=== PATIENT | female | born 1970 | race Caucasian/White ===

== ENCOUNTER 2016-12-11 11:57 | Inpatient (IN) | payer SELFPAY ==
--- NOTE | ~2016-12-11 | DS ---
Discharge Summary [id number] [place]. [address] NAME: GERHARD HERNANDEZ : 66 STATUS : DIS IN PAT#: [id number] AGE: 46 ADM/REG DATE : 12/11/16 MR#: [id number] REPORT SERV DATE: 12/14/16 DICTATED BY: RONNIE SOLOMON DATE: 12/13/16 REPORT STATUS : Draft TRANSCRIBED BY: MODL DATE: 12/13/16 ADMISSION DATE: 12/11/2016 DISCHARGE DATE: 12/13/2016 DISCHARGE DIAGNOSES: 1. Sepsis. 2. Community-acquired pneumonia. 3. Acute exacerbation of chronic obstructive pulmonary disease. 4. Acute hypoxemic respiratory failure. 5. Hypertension. 6. Coronary artery disease with inferior myocardial infarction in June 2013, treated with bare metal stent. 7. Hyperlipidemia. 8. Daily tobacco use. 9. Daily alcohol use. 10.Poor medication compliance because of financial reasons. 11.Mild elevation of alkaline phosphatase and bilirubin. Outpatient followup needed. OPERATIONS AND PROCEDURES: None. PRESENT ILLNESS: This is a 46-year-old white female, who was triaged in the emergency room on 12/11/2016 at 1157 hours complaining of shortness of breath. Her admission vital signs were blood pressure 162/96, temperature 102.5, pulse 134, respirations of 24, O2 saturation 93. After evaluation in the emergency room, she was thought to have a right lower lobe pneumonia. She was referred to the Hospitalist Service. She was seen by the undersigned and admitted as described on admission history and physical examination. ADDITIONAL HISTORY: Per history and physical. PHYSICAL EXAMINATION: Per history and physical. ADMISSION LABORATORY: Per history and physical. HOSPITAL COURSE: She was admitted as described. She was placed on [address]. Cultures were obtained. She was started on Rocephin and Zithromax. She was given IV fluids, bronchodilators, electrolyte replacement protocol, nicotine replacement protocol, multivitamins including thiamine and parenteral medications as needed for pain and nausea control. Over the course of her hospitalization, there was dramatic improvement in her presenting symptoms. Her T-max was 102.5 on the 12/11/2016 at 1157 hours. She defervesced and remained afebrile from 1950 on the 12/11/2016 to the time of discharge. Her cough, sputum, dyspnea, and wheezing improved, and by discharge, she was almost asymptomatic on room air. Her white count was 22.8 on admission increased to 24.6 and was 15.6 on the 12/13/2016. Discharge Summary [id number] [place]. [address] NAME: GERHARD HERNANDEZ : 66 STATUS : DIS IN PAT#: [id number] AGE: 46 ADM/REG DATE : 12/11/16 MR#: [id number] REPORT SERV DATE: 12/14/16 DICTATED BY: RONNIE SOLOMON DATE: 12/13/16 REPORT STATUS : Draft TRANSCRIBED BY: MODL DATE: 12/13/16 Procalcitonin on the 12/11/2016 was 0.09 and was not repeated. Streptococcal urinary antigens were negative as was a Legionella urinary antigen. Blood cultures obtained prior to antimicrobial therapy were negative. A chest x-ray repeated on the 12/12/2016, PA and lateral, showed a right basilar infiltrate or atelectasis, possibly increased from 12/11/2016 with the better technique. When seen on 12/13/2016 at 12:06, she was symptomatically improved, eating, and ambulatory. She thought she could manage at home. Her exam is normal except for a few posterior rhonchi. Her laboratory studies were as noted. Medications were obtained through our Outpatient Pharmacy Department. She was revisited at 1612 hours with continued improvement. She was given her third dose of Rocephin and Zithromax. It was felt, she could be safely discharged to home with outpatient followup at [facility] on 12/20/2016 at 10:30 a.m. DISCHARGE MEDICATIONS: Aspirin 81 mg daily. A 30-day supply of Lipitor 40 mg was given. A 30-day supply of Coreg 6.25 mg twice daily was given. A supply of Ceftin 500 mg to take twice daily for the next seven days beginning on 12/14/2016 was given in addition to Zithromax 500 mg to take with supper on Saturday and Saturday. She was also given a Combivent Respimat to use four times daily. She left prior to receiving her pneumococcal and flu vaccination which will need to be administered at her clinic followup. Discharge time greater than 30 minutes. DD/MODL Ronnie Solomon M.D. / [id number] CC: Ronnie Solomon M.D. [facility]
--- NOTE | ~2016-12-11 | HP ---
History And Physical [address] [address] NAME: GERHARD HERNANDEZ : 66 STATUS : ADM IN [facility]#: [id number] AGE: 46 ADM/REG DATE : 12/11/16 MR#: [id number] REPORT SERV DATE: 12/12/16 DICTATED BY: RONNIE SOLOMON DATE: 12/11/16 REPORT STATUS : Draft TRANSCRIBED BY: MODL DATE: 12/11/16 DATE OF ADMISSION: 12/11/2016 CHIEF COMPLAINT: This is a 46-year-old white female who was triaged in the emergency room on 12/11/2016 at 1157 hours complaining of shortness of breath. Her admission vital signs were blood pressure 162/96, temp 102.5, temperature 39.17 centigrade, pulse 134, respirations 24, O2 saturation 93. After evaluation in the emergency room, she was thought to have a right lower lobe pneumonia. She was referred to the Hospitalist Service. She is now seen by the undersigned and admitted. HISTORY OF PRESENT ILLNESS: She has been sick for approximately one week with a cough productive of discolored sputum. She has had shortness of breath. She has not checked her temperature, but she is certain she has had fever. She has had chills and sweating. She has not had any headache, earache, nasal drainage, or sore throat. She has not had any nausea, vomiting, or diarrhea. She has had some abdominal pain. She has not had any dysuria. She has not had any itching or rash. She is ached all over, but has not had any focal joint pain except her back. She did not have a flu vaccination within the past year. She has not had pneumonia vaccinations in the past. She does not recall any ill contacts, particularly with those that she lives with. She does not think that she has had any aspiration episodes. She has not been camping or sleeping outside. She has not traveled. No bird roosting around where she lives. The only animal contact has been a horse. She has city water. She does have a previous history of pneumonia in September of 2015 when she was in this hospital with the diagnosis of sepsis due to community-acquired pneumonia. She does not have any history of DVT, PE, cancer, diabetes, thyroid disease, stroke, urinary tract infections, connective tissue disorder, immunosuppressive therapy. MEDICAL HISTORY: Her other medical history includes: 1. COPD/asthma. 2. Hypertension. 3. Hyperlipidemia. 4. Coronary artery disease with inferior myocardial infarction in June 2013, treated with bare metal stent. 5. Daily tobacco use. 6. Daily alcohol use. 7. Poor medication compliance because of financial reasons. PAST SURGICAL HISTORY: None. CURRENT MEDICATIONS: None. ALLERGIES: NONE. History And Physical [address] [address] NAME: GERHARD HERNANDEZ : 66 STATUS : ADM IN PAT#: [id number] AGE: 46 ADM/REG DATE : 12/11/16 MR#: [id number] REPORT SERV DATE: 12/12/16 DICTATED BY: RONNIE SOLOMON DATE: 12/11/16 REPORT STATUS : Draft TRANSCRIBED BY: ANNCY DATE: 12/11/16 SOCIAL HISTORY: . Lives with friend. Two children. One [id number] smoking, two to three beers per day. FAMILY HISTORY: Three sisters, one brother, brother with bypass surgery. Mother with cardiovascular disease. Father with some type of cancer. REVIEW OF SYSTEMS: Complete, done with the patient in the emergency room and negative except as noted above. PHYSICAL EXAMINATION: ADMISSION VITAL SIGNS: See above. Subsequent vital signs at 1459 hours; blood pressure 141/86, temp 102, pulse 120, respirations 18, O2 saturation 93% on 3 L. GENERAL: This is an acutely ill, stated age appearing white female, who is alert and coherent and appears toxic. SKIN: Red, warm, and moist over neck, face, arms, chest, and back. NODES: No palpable axillary, cervical, or inguinal. HEENT: Atraumatic with symmetric facies. Lids, sclerae, and conjunctivae negative. No xanthelasma, scleral icterus, or conjunctival petechiae or ecchymoses. Extraocular movements intact. Pupils equal, round, and reactive to light. Hearing intact. External ears negative. Ear canals and TMs normal. Nose negative. Anterior nares and septum clear. No nasal discharge. Lips, gums, mucosa, hard and soft palates, posterior pharynx, tongue, and gums negative. NECK: Supple. No visible JVD. No palpable mass, goiter, or tenderness. Trachea midline, nontender. LUNGS: Bronchial breath sounds, rales, wheezes, or rhonchi right base posteriorly. Increased respiratory effort. HEART: Regular tachycardia. No audible murmur, gallop, rub, or click. Pulses 2+ and symmetric; radial, carotid, femoral, dorsalis pedis, and posterior tibial. ABDOMEN: Obese. Generally tender to palpation without guarding, rebound, or rigidity. Cannot feel liver, spleen, kidneys, or aortic pulsation. UPPER AND LOWER EXTREMITIES: No active synovitis, clubbing, or edema. Range of motion without pain in upper and lower extremities. NEUROLOGIC: Mental status. She is alert and oriented. Cranial nerves 2 through 12 normal. Deep tendon reflexes symmetric 2+ brachioradialis and knee jerk. Sensory intact to touch and temperature. Motor, moves all extremities equally. PSYCHIATRIC: Appropriate mood and affect. DATA: Arterial blood gases on room air; pH 7.56, pCO2 of 24, pO2 of 58, procalcitonin 0.09. Sodium 136, potassium 4, chloride 102, CO2 of 22, BUN 9, creatinine 0.95, glucose 120, calcium 9. Albumin 3.7, globulin 3.2, total bilirubin 1.5, alkaline phosphatase 132, ALT 13, AST 15. Lactate is 2.3. White count is 22,800, hemoglobin 16.1, platelets 235,000. PTT is 26.3, PT is 13. Urinalysis; positive urobilinogen, negative dipstick otherwise and microscopic. Chest x-ray reviewed. Suspect right pulmonary infiltrate. History And Physical [address] [address] NAME: GERHARD HERNANDEZ : 66 STATUS : ADM IN [facility]#: [id number] AGE: 46 ADM/REG DATE : 12/11/16 MR#: [id number] REPORT SERV DATE: 12/12/16 DICTATED BY: RONNIE SOLOMON DATE: 12/11/16 REPORT STATUS : Draft TRANSCRIBED BY: MODL DATE: 12/11/16 EKG: Sinus tachycardia. ASSESSMENT: This is a 46-year-old white female with: 1. Sepsis. 2. Community-acquired pneumonia. 3. Acute exacerbation of chronic obstructive pulmonary disease. 4. Acute hypoxemic respiratory failure. 5. Hypertension. 6. Hyperlipidemia. 7. Coronary artery disease, post inferior myocardial infarction in 06/2013 with bare mental stent, treated. 8. Daily tobacco use. 9. Daily alcohol use. 10.Elevated bilirubin and alkaline phosphatase. PLAN: In the emergency room, cultures were obtained. We will begin Rocephin and Zithromax per community-acquired pneumonia standing orders. Check CRP. Check urinary antigens. Begin MultiVites. Parenteral medications as needed for pain and nausea control. Begin IV fluids. Begin full array of aerosols with DuoNebs, Brovana, and budesonide. Nicotine replacement therapy protocol. Electrolyte replacement protocol. Observe for any symptoms of alcohol withdrawal. We will reinstitute guideline directed therapy for her cardiovascular disease with aspirin, beta adrian, and statin. Add JOSE inhibitor later pending followup blood pressures and renal function. Further diagnostic and therapeutic considerations pending follow up. DD/MODL Ronnie Solomon M.D. / [id number] CC: Ronnie Solomon M.D.
[~2016-12-11 11:57] MED LIST: *DENIES; ALKA-SELTZER P1 EAC3 PO; ASAB PO; BRILINTA90 MG PO; BUM1 PO; COREG12 PO; COREG6 PO; DULERA 200 MCG/13 GM INH; DUONEB INH; FLOVENT44 INH; HALF81 PO; LEVAQUIN750 MG PO; LIBRIUM 10 MG C10 MG PO; NICODERM C14 MG/24 H TOP; P20 PO; PRAVACHOL40 MG PO; PRILO PO; PRIN2.5 PO; PRIN20 PO; SYMBICORT 160/41 INH INH
[2016-12-11 12:37] LABS: ALLENS TEST Pos; BE (BASE EXCESS) 0.9 MEQ/L (0 +/- 2.5); HCO3 (ACTUAL BICARBONATE) 21.1 MEQ/L (23-27); HEMOBLOGIN CONTENT 15.8 G/DL (12-16); INSTRUMENT SERIAL # 8087; METHEMOGLOBIN 0.2 % (0-3); O2 CONTENT 19.6 VOL% (18-24); OPERATOR ID 35091; PCO2 (CO2 TENSION) 24 MMHG (35-45); PO2 (O2 TENSION) 58 MMHG (79-93); SAMPLE Arterial; pH 7.56 (7.37-7.43)
[2016-12-11 12:39] LABS: BASOPHILS 0.2 %; BASOPHILS ABSOLUTE 0.04 10/3/uL (0.0-0.16); EOSINOPHILS 0.3 %; EOSINOPHILS ABSOLUTE 0.06 10/3/uL (0.0-0.53); IMMATURE GRANULOCYTES 0.6 %; IMMATURE GRANULOCYTES ABSOLUTE 0.13 10/3/uL (0.0-0.11); LYMPHOCYTES 16.7 %; LYMPHOCYTES ABSOLUTE 3.79 10/3/uL (0.67-4.30); MEAN PLATELET VOLUME 10.4 fL (9.2-13.0); MONOCYTES 4.9 %; MONOCYTES ABSOLUTE 1.11 10/3/uL (0.21-1.20); NEUTROPHILS 77.3 %; NEUTROPHILS ABSOLUTE 17.63 10/3/uL (2.02-8.40); PLATELET COUNT 235 10/3/uL (150-400); RBC DISTRIBUTION WIDTH 13.3 % (12.0-16.0); RED CELL COUNT 5.22 10/6/uL (4.0-5.6)
[2016-12-11 12:44] LABS: ER CBC TAT 0 Hrs 12 Mins; HEMATOCRIT 46.9 % (36.0-48.0); HEMOGLOBIN 16.1 g/dL (12.0-16.0); MANUAL DIFF NO %; MEAN CORPUS HGB CONC 34.3 g/dL (32.0-36.0); MEAN CORPUSCULAR HEMOGLOB 30.8 pg (26.0-34.0); MEAN CORPUSCULAR VOLUME 89.8 fL (80-100); WHITE BLOOD CELLS 22.8 10/3/uL (4.5-10.5)
[2016-12-11 12:46] LABS: PARTIAL THROMBO TIME 26.3 SEC (22.5-37.2)
[2016-12-11 12:53] LABS: ALBUMIN 3.7 G/DL (3.5-5.0); CHLORIDE, SERUM 102 MMOL/L (96-112); CREATININE 0.95 MG/DL (0.55-1.02); GFR AFRICAN AMERICAN 82 ML/MIN (>=60); GFR NON AFRICAN AMERICAN 71 ML/MIN (>=60); GLUCOSE, SERUM 120 MG/DL (60-99); SGOT(AST) 15 U/L (5-40); SGPT(ALT) 13 U/L (5-65); SODIUM, SERUM 136 MMOL/L (135-148); TOTAL PROTEIN 6.9 G/DL (6.0-8.5)
[2016-12-11 12:54] LABS: A/G RATIO 1.2 (0.7-1.9); ALKALINE PHOSPHATASE 132 U/L (45-117); BUN (BLOOD UREA NITROGEN) 9 MG/DL (6-23); CO2 (CARBON DIOXIDE) 22 MMOL/L (24-34); GLOBULIN 3.2 G/DL (2.5-4.1); TOTAL BILIRUBIN 1.5 MG/DL (0-1.2)
[2016-12-11 13:04] LABS: LACTATE 2.3 MMOL/L (0.3-2.4)
[2016-12-11 13:21] LABS: PROCALCITONIN 0.09 ng/mL (<0.5)
[2016-12-11 14:10] LABS: ASCORBIC ACID (UR NOT ORDER) NEG (NEG); BILIRUBIN, URINE NEGATIVE (NEG); ER URINALYSIS TAT 0 Hrs 09 Mins; KETONE, URINE NEGATIVE (NEG); LEUKOCYTE ESTERASE(NOT OR NEG (NEG); NITRITE (URINE) NEG (NEG); WBC (NOT ORDERED) (RFLEX) < 1 (0-5)
[2016-12-11] MEDS ORDERED: ALBUTEROL0.083 % INH (14:49)
[2016-12-11 18:14] LABS: TROPONIN I <0.02 NG/ML (<0.05)
[2016-12-12 06:14] LABS: HEMOGLOBIN 13.3 g/dL (12.0-16.0); MEAN CORPUS HGB CONC 32.9 g/dL (32.0-36.0); MEAN CORPUSCULAR HEMOGLOB 30.3 pg (26.0-34.0); MEAN PLATELET VOLUME 10.6 fL (9.2-13.0); PLATELET COUNT 221 10/3/uL (150-400); RBC DISTRIBUTION WIDTH 13.7 % (12.0-16.0); RED CELL COUNT 4.39 10/6/uL (4.0-5.6); WHITE BLOOD CELLS 24.6 10/3/uL (4.5-10.5)
[2016-12-12 06:15] LABS: HEMATOCRIT 40.4 % (36.0-48.0); MANUAL DIFF YES %
[2016-12-12 06:23] LABS: BUN (BLOOD UREA NITROGEN) 11 MG/DL (6-23); CALCIUM, SERUM 8.6 MG/DL (8.5-10.4); CHLORIDE, SERUM 106 MMOL/L (96-112); CO2 (CARBON DIOXIDE) 26 MMOL/L (24-34); CREATININE 0.85 MG/DL (0.55-1.02); GFR AFRICAN AMERICAN 94 ML/MIN (>=60); GFR NON AFRICAN AMERICAN 81 ML/MIN (>=60); GLUCOSE, SERUM 98 MG/DL (60-99); SODIUM, SERUM 140 MMOL/L (135-148)
[2016-12-12 06:42] LABS: BAND NEUTROPHILS 17 %; EOSINOPHILS 1 %; EOSINOPHILS ABSOLUTE (CALC) 0.25 10/3/uL (0.0-0.53); LYMPHOCYTES 15 %; LYMPHOCYTES ABSOLUTE (CALC) 3.69 10/3/uL (0.67-4.30); NEUTROPHILS ABSOLUTE (CALC) 20.66 10/3/uL (2.02-8.40); PLATELET ESTIMATE ADQ (ADEQUATE); SEGMENTED NEUTROPHIL (0) 67 %; TOTAL NUCLEATED CELLS 100
[2016-12-12 06:43] LABS: RBC MORPHOLOGY NORM (NORMAL)
[2016-12-13 05:45] LABS: HEMATOCRIT 39.7 % (36.0-48.0); MEAN CORPUS HGB CONC 32.7 g/dL (32.0-36.0); MEAN CORPUSCULAR HEMOGLOB 30.4 pg (26.0-34.0); MEAN CORPUSCULAR VOLUME 92.8 fL (80-100); MEAN PLATELET VOLUME 10.7 fL (9.2-13.0); PLATELET COUNT 225 10/3/uL (150-400); RBC DISTRIBUTION WIDTH 13.7 % (12.0-16.0); RED CELL COUNT 4.28 10/6/uL (4.0-5.6); WHITE BLOOD CELLS 15.6 10/3/uL (4.5-10.5)
[2016-12-13 05:48] LABS: MANUAL DIFF YES %
[2016-12-13 06:14] LABS: BUN (BLOOD UREA NITROGEN) 12 MG/DL (6-23); CALCIUM, SERUM 8.6 MG/DL (8.5-10.4); CHLORIDE, SERUM 108 MMOL/L (96-112); CO2 (CARBON DIOXIDE) 25 MMOL/L (24-34); CREATININE 0.66 MG/DL (0.55-1.02); GFR AFRICAN AMERICAN 121 ML/MIN (>=60); GFR NON AFRICAN AMERICAN 104 ML/MIN (>=60); GLUCOSE, SERUM 100 MG/DL (60-99); POTASSIUM, SERUM 3.9 MMOL/L (3.5-5.3); SODIUM, SERUM 141 MMOL/L (135-148)
[2016-12-13 06:43] LABS: BAND NEUTROPHILS 5 %; BASOPHILS 1 %; BASOPHILS ABSOLUTE (CALC) 0.16 10/3/uL (0.0-0.16); EOSINOPHILS 3 %; EOSINOPHILS ABSOLUTE (CALC) 0.47 10/3/uL (0.0-0.53); LYMPHOCYTES 33 %; LYMPHOCYTES ABSOLUTE (CALC) 5.15 10/3/uL (0.67-4.30); MONOCYTES 6 %; MONOCYTES ABSOLUTE (CALC) 0.94 10/3/uL (0.21-1.20); NEUTROPHILS ABSOLUTE (CALC) 8.89 10/3/uL (2.02-8.40); PLATELET ESTIMATE ADQ (ADEQUATE); RBC MORPHOLOGY NORM (NORMAL); SEGMENTED NEUTROPHIL (0) 52 %; TOTAL NUCLEATED CELLS 100
[2016-12-13] MEDS ORDERED: ASAB PO (17:09)
[2016-12-13] MEDS ORDERED: LIPITOR40 PO (17:09)
[2016-12-13] MEDS ORDERED: COREG6 PO (17:10)
[2016-12-13] MEDS ORDERED: CEFT5 PO (17:11)
[2016-12-13] MEDS ORDERED: COMBIVENT RESPIM4 GM INH (17:12)
[2016-12-13] MEDS ORDERED: ZITHROMAX500 MG PO (17:12)
== END 2016-12-13 18:56 | disposition home or self-care (01) | DRG 871 ==
LOC: ER 11:57 → 6NO 15:11
PROVIDERS: Emergency Medicine; Internal Medicine
DX: A41.9 Sepsis, unspecified organism (principal); J18.9 Pneumonia, unspecified organism; J96.01 Acute respiratory failure with hypoxia; J44.1 Chronic obstructive pulmonary disease with (acute) exacerbation; J45.909 Unspecified asthma, uncomplicated; I10 Essential (primary) hypertension; E78.5 Hyperlipidemia, unspecified; F17.210 Nicotine dependence, cigarettes, uncomplicated; I25.10 Atherosclerotic heart disease of native coronary artery without angina pectoris; I25.2 Old myocardial infarction; R74.8 Abnormal levels of other serum enzymes; Z95.5 Presence of coronary angioplasty implant and graft; Z87.01 Personal history of pneumonia (recurrent); Z72.89 Other problems related to lifestyle; Z91.19 Patient's noncompliance with other medical treatment and regimen
CPT/HCPCS: 36600; 71010; 71020; 80048; 80053; 81001; 82805; 83605; 83735; 83880; 84145; 84484; 85025; 85610; 85730; 86140; 87040; 87449; 93005; 94640; 96374; 99285; A9270-GY; J0456; J2405